=== PATIENT | female | born 1945 | race Two or more races ===

== ENCOUNTER 2020-02-17 23:24 | Emergency (ER) | payer MEDICARE ==
[~2020-02-17] VITALS: Ht 157.5 cm; Wt 86.4 kg
[2020-02-18 02:30] VITALS: BP 141/96
== END 2020-02-18 03:20 | disposition home or self-care (01) ==
LOC: EMS 23:24
DX: S01.81XA Laceration without foreign body of other part of head, initial encounter (principal); M25.569 Pain in unspecified knee; W18.09XA Striking against other object with subsequent fall, initial encounter; Y93.89 Activity, other specified; Y92.89 Other specified places as the place of occurrence of the external cause; Y99.8 Other external cause status
CPT/HCPCS: 12002; 70450; 72125